=== PATIENT | female | born 1995 | race Hispanic/Latino ===

== ENCOUNTER 2017-11-26 16:55 | Emergency (ER) | payer BC, OTHER ==
[2017-11-26] MEDS ORDERED: Naproxen 550 mg Tab PO STA (18:03)
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
[2017-11-26 18:09] VITALS: RESP 18; TEMP 98.1
[2017-11-26 19:30] VITALS: BP 125/74; PULSE 66; O2SAT 100
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
--- NOTE | 2017-11-27 08:58 | RAD ---
Date of service: 11/26/2017 PROCEDURE: Radiographs of the Left Forearm HISTORY: pain COMPARISON: None available. TECHNIQUE: Frontal and lateral views obtained. FINDINGS: BONES: No fracture or destructive lesion. JOINT SPACES: Unremarkable. OTHER FINDINGS: None. IMPRESSION: Unremarkable radiographs of the left forearm.
== END 2017-11-26 19:33 | disposition home or self-care (01) ==
LOC: ED 16:55
DX: S40.022A Contusion of left upper arm, initial encounter (principal); V49.49XA Driver injured in collision with other motor vehicles in traffic accident, initial encounter; Y92.488 Other paved roadways as the place of occurrence of the external cause

== ENCOUNTER 2018-02-16 20:33 | Emergency (ER) | payer BC, OTHER ==
[2018-02-16 21:10] VITALS: BP 138/94; RESP 18; TEMP 99.6
--- NOTE | 2018-02-16 21:11 | ED PDOC ---
Arrival/HPI - History of Present Illness Narrative History of Present Illness (Text): 02/16/18 22:44 22F past medical history of asthma, endometriosis and occular migraines presents to the Emergency department with a 2 day hx of L sided arm pain. The pain comes and goes, is located in the shoulder elbow and wrist. Pt reports generalized body aches that move to the contralateral hip and at times the abdomen. Pt says her endometeriosis pains have been well controlled with her new contraceptive however ted she began to have suprapubic pains. Her OBGYN gaave her nitrofuratoin that she is taking BID. Pt follows up with Neurologist Dr Salcido for her family hx of epilepsy and her migraines. Pt is accompanied by her sister, expresses concern for MS, Her most recent MRI head and neck showed no pathology of note as per pt. PMD: Ilya Neuro: Keo ROS: Pos+ migraines, arm aches, abdominal pains Neg- numbness, tingling, weakness, cyanosis, nausea, vomiting, chest pain, shortness of breath, fevers, chills, rashes, neck pain 02/16/18 23:01 Time/Duration: < week Symptom Course: Unchanged Quality: Aching Activities at Onset: Rest <Wes Andrews - Last Filed: 02/17/18 00:48> <Quintin Lombardi - Last Filed: 02/21/18 20:25> - General Chief Complaint: Upper Extremity Problem/Injury Time Seen by Provider: 02/16/18 21:00 Past Medical History - Provider Review Nursing Documentation Reviewed: Yes (endometriosis, occular migraines) - Infectious Disease Hx of Infectious Diseases: None - Tetanus Immunization Tetanus Immunization: Up to Date - Cardiac Hx Cardiac Disorders: No - Pulmonary Hx Respiratory Disorders: No - Neurological Hx Neurological Disorder: No - HEENT Hx HEENT Disorder: No - Renal Hx Renal Disorder: No - Endocrine/Metabolic Hx Endocrine Disorders: No - Hematological/Oncological Hx Blood Disorders: No - Integumentary Hx Dermatological Disorder: Yes (Acne) - Musculoskeletal/Rheumatological Hx Musculoskeletal Disorders: No - Gastrointestinal Hx Gastrointestinal Disorders: No - Genitourinary/Gynecological Hx Genitourinary Disorders: Yes (endometriosis) - Psychiatric Hx Depression: No Hx Emotional Abuse: No Hx Physical Abuse: No Hx Substance Use: No - Suicidal Assessment Feels Threatened In Home Enviroment: No <Wes Andrews - Last Filed: 02/17/18 00:48> Family/Social History - Physician Review Nursing Documentation Reviewed: Yes Family/Social History: Other (epilepsy) Smoking Status: Never Smoked Hx Alcohol Use: No Hx Substance Use: No Hx Substance Use Treatment: No <Wes Andrews - Last Filed: 02/17/18 00:48> Allergies/Home Meds <Wes Andrews - Last Filed: 02/17/18 00:48> <Quintin Lombardi - Last Filed: 02/21/18 20:25> Allergies/Adverse Reactions: Allergies No Known Allergies Allergy (Verified 02/16/18 21:10) Home Medications: Home Meds Medication Instructions Recorded Confirmed Norethindrone Acetate [Aygestin] 4 tab PO DAILY 11/11/14 02/16/18 Budesonide/Formoterol Fumarate 1 puff INH DAILY 02/16/18 02/16/18 [Symbicort 160-4.5 Mcg Inhaler] Pantoprazole Sodium [Protonix] 40 mg PO DAILY 02/16/18 02/16/18 Review of Systems - Review of Systems Constitutional: absent: Fatigue, Fevers, Night Sweats Eyes: Eye Pain (occular migraines) Respiratory: absent: SOB, Cough Cardiovascular: absent: Chest Pain Gastrointestinal: Abdominal Pain (mild). absent: Constipation, Diarrhea, Nausea, Vomiting Musculoskeletal: Arthralgias (L Upper Ext), Myalgias (L Upper Ext) Skin: absent: Rash Neurological: Headache (migraines) <Wes Andrews - Last Filed: 02/17/18 00:48> Physical Exam Vital Signs Temp Pulse Resp BP Pulse Ox 02/16/18 21:06 99.6 F 85 18 138/94 H 100 Temperature: Afebrile Blood Pressure: Normal Pulse: Regular Respiratory Rate: Normal Appearance: Positive for: Well-Appearing, Non-Toxic Pain Distress: Mild Mental Status: Positive for: Alert and Oriented X 3 - Systems Exam Head: Present: Atraumatic, Normocephalic Pupils: Present: PERRL. No: Sluggish Extroacular Muscles: Present: EOMI. No: Gaze Palsy Conjunctiva: Present: Normal Mouth: Present: Moist Mucous Membranes Neck: Present: Normal Range of Motion, Other (neck spurling's) Respiratory/Chest: Present: Clear to Auscultation. No: Wheezes, Rales Cardiovascular: Present: Normal S1, S2. No: Murmurs Abdomen: Present: Normal Bowel Sounds. No: Tenderness, Guarding Genitourinary/Pelvic Exam: No: Adenexal Tenderness Back: No: Paraspinal Tenderness, Pain with Leg Raise Upper Extremity: Present: Normal Inspection, NORMAL PULSES, Other (NEG: speed's, hawkin's, aprehension, empty can, adson's, elbow varus/valgus stress, yurgesson's, lerma's harmony, scaphoid sign, L SIDE). No: Cyanosis, Edema Lower Extremity: Present: Normal Inspection Neurological: Present: GCS=15, CN II-XII Intact Skin: Present: Dry, Normal Color Psychiatric: Present: Alert, Oriented x 3, Normal Insight, Normal Concentration <Wes Andrews - Last Filed: 02/17/18 00:48> Vital Signs Temp Pulse Resp BP Pulse Ox 02/17/18 01:15 99 02/17/18 00:15 80 18 98 02/16/18 21:06 99.6 F 85 18 138/94 H 100 <Quintin Lombardi - Last Filed: 02/21/18 20:25> Medical Decision Making ED Course and Treatment: 02/16/18 23:12 POC urine neg Urinalysis- trace blood f/u rapid flu f/u EKG 100mg Gabapentin PO 02/16/18 23:53 no relief w/ gabapentine Toradol 30mg IM stat - EKG Interpretation EKG Interpretation (Text): 02/16/18 23:54 63 NSR Interpreted by ED Physician: Yes <Wes Andrews - Last Filed: 02/17/18 00:48> - Lab Interpretations Lab Results: Lab Results 02/16/18 22:31: Urine Color Yellow, Urine Appearance Clear, Urine pH 7.0, Ur Specific [place] 1.020, Urine Protein Negative, Urine Glucose (UA) Negative, Urine Ketones Negative, Urine Blood Small H, Urine Nitrate Negative, Urine Bilirubin Negative, Urine Urobilinogen 0.2, Ur Leukocyte Esterase Negative, Urine RBC 0 - 2, Urine WBC Negative, Ur Epithelial Cells None 12/23/18 22:26: Influenza Typ A,B (EIA) Negative for flu a/b - Medication Orders Current Medication Orders: Discontinued Medications Gabapentin (Neurontin) 100 mg PO STAT STA; Protocol Stop: 02/16/18 22:44 Last Admin: 02/16/18 23:00 Dose: 100 mg Ketorolac Tromethamine (Toradol) 30 mg IM STAT STA Stop: 02/16/18 23:49 Last Admin: 02/17/18 00:31 Dose: 30 mg MAR Pain Assessment Document 02/17/18 00:31 SS (Rec: 02/17/18 00:31 SS [id number]) Pain Reassessment Is this a pain reassessment? Yes Sleep Is patient sleeping during reassessment? No Presence of Pain Presence of Pain Yes IM Administration Charges Document 02/17/18 00:31 SS (Rec: 02/17/18 00:31 SS [id number]) Injection Site MAR Injection Site Left Deltoid Charges for Administration # of IM Administrations 1 <Quintin Lombardi - Last Filed: 02/21/18 20:25> - PA / CYBER OPS PLANNER / Resident Statement MD/DO has examined the patient and agrees with the treatment plan. (22 yr olf F w/ L arm pain [id number], seen by Neuro and had negative MRI head and neck for same pain. Likely atypical migraine vs ?MS. Well appearing on exam, without FND and normal neuro exam. labs [id number] and pain improved, instructed to f/u w/ neuro. pt agreeable to plan. No fall or trauma or signs of trauma. No suprapubic pain on exam, abd non-ttp.) <Quintin Lombardi - Last Filed: 02/21/18 20:25> Disposition/Present on Arrival - Present on Arrival Any Indicators Present on Arrival: No History of DVT/PE: No History of Uncontrolled Diabetes: No Urinary Catheter: No History of Decub. Ulcer: No History Surgical Site Infection Following: None - Disposition Have Diagnosis and Disposition been Completed?: Yes Disposition Time: 00:49 Patient Plan: Discharge <Wes Andrews - Last Filed: 02/17/18 00:48> <Quintin Lombardi - Last Filed: 02/21/18 20:25> - Disposition Diagnosis: Left arm pain, Left arm weakness Disposition: HOME/ ROUTINE Condition: GOOD Discharge Instructions (ExitCare): Muscle and Bone Pain (DC), Generalized Weakness (DC) Additional Instructions: CHAPIN TRINIDAD, thank you for letting us take care of you today. Your provider was Quintin Lombardi and you were treated for UPPER EXTREMITY PAIN. The emergency medical care you received today was directed at your acute symptoms. If you were prescribed any medication, please fill it and take as directed. It may take several days for your symptoms to resolve. Return to the Emergency Department if your symptoms worsen, do not improve, or if you have any other problems. Please contact your doctor or call one of the physicians/clinics you have been referred to that are listed on the Patient Visit Information form that is included in your discharge packet. Bring any paperwork you were given at discharge with you along with any medications you are taking to your follow up visit. Our treatment cannot replace ongoing medical care by a primary care provider outside of the emergency department. Thank you for allowing the [facility] team to be part of your care today. If you had an X-Ray or CT scan: A Radiologist will review the ED reading if any change in treatment is needed we will contact you. If you had a blood, urine, or wound culture: It will take several days for the results, if any change in treatment is needed we will contact you. If you had an STI test: It will take 48 hours for the results. Please call after 1 week if you have not heard back. PLEASE FOLLOW UP WITH NEUROLOGIST DR SALCIDO WITHIN ONE WEEK FOR ASSESSMENT Referrals: Mynor Mejia MD [Primary Care Provider] - Follow up with primary Judy Salcido MD [Non-Staff] - Follow up with primary Forms: [employer] (Tanzanian)
[2018-02-16 22:47] LABS: URINE BILIRUBIN NEGATIVE (NEGATIVE); URINE BLOOD SMALL (NEGATIVE); URINE GLUCOSE (UA) NEGATIVE (NEGATIVE); URINE LEUKOCYTE ESTERASE NEGATIVE Leu/uL (NEGATIVE); URINE PROTEIN NEGATIVE mg/dL (<30 mg/dL); URINE UROBILINOGEN 0.2 E.U./dL (<1 E.U./dL)
[2018-02-16 22:48] LABS: URINE APPEARANCE CLEAR (CLEAR); URINE COLOR YELLOW (YELLOW)
[2018-02-16 22:55] LABS: URINE RBC 0 - 2 /hpf (0-2); URINE WBC NEGATIVE /hpf (0-6)
[2018-02-17 01:28] VITALS: O2SAT 99
[2018-02-17 01:29] VITALS: PULSE 80
--- NOTE | 2018-02-17 09:15 | CARD ---
APPROVED REPORT Date of service: 02/16/2018 EKG Measurement Heart [id number] <Conclusion> Normal sinus rhythm Normal ECG No change
== END 2018-02-17 01:26 | disposition home or self-care (01) ==
LOC: ED 20:33
DX: M79.602 Pain in left arm (principal); M62.81 Muscle weakness (generalized)
CPT/HCPCS: 81001; 87804; 93005; 96372; 99283; J1885